=== PATIENT | male | born 1940 | race Caucasian/White ===

== ENCOUNTER 2024-05-24 09:52 | Outpatient (CLI) | payer MEDICARE, BC ==
[2024-05-24 10:21] LABS: BASO % 0.6 % (0.0-2.0); EOS # 0.3 K/mm3 (0.0-0.7); EOS % 5.6 % (0.0-4.0); GRAN # 2.7 K/mm3 (1.4-6.5); GRAN % 50.4 % (42.2-75.2); HEMATOCRIT 44.2 % (42.0-52.0); HEMOGLOBIN 15.1 g/dl (13.5-18.0); LYMPH # 1.7 K/mm3 (1.2-3.4); LYMPH % 31.9 % (20.0-51.0); MEAN CELL VOLUME 88 fl (80.0-100.0); MEAN CORPUSCULAR HEMOGLOBIN 30 pg (27-31); MEAN CORPUSCULAR HGB CONC 34 g/dl (33.0-37.0); MEAN PLATELET VOLUME 12.5 fl (7.4-10.4); MONO # 0.6 K/mm3 (0.1-0.6); MONO % 11.3 % (1.7-9.3); PLATELET COUNT 175 K/mm3 (130-400); RED BLOOD COUNT 5.03 M/mm3 (4.20-5.60); REDCELL DISTRIBUTION WIDTH-CV 14.1 % (11.5-14.5)
[2024-05-24] MEDS ORDERED: OSTEO-BI-FLEX 21 TAB PO (10:23)
[2024-05-24] MEDS ORDERED: CVS SPECTRAVIT1 EA15 PO (10:23)
[2024-05-24] MEDS ORDERED: VITAMINC1000TA (10:24)
[2024-05-24] MEDS ORDERED: PHARMASSURE ZIN50 MG PO (10:24)
[2024-05-24] MEDS ORDERED: PROBIOTIC BLEN1 EACH PO (10:25)
[2024-05-24] MEDS ORDERED: D5W ICA PRN (10:30)
[2024-05-24 10:31] VITALS: BP 116/78; PULSE 60; TEMP 97.2
[2024-05-24] MEDS ORDERED: [UNRECOGNIZED DRUG - OTHER] PO (10:41)
[2024-05-24] MEDS ORDERED: [UNRECOGNIZED DRUG - OTHER] PO (10:41)
[2024-05-24] MEDS ORDERED: ARICEPT 5MG (10:42)
[2024-05-24] MEDS ORDERED: MASON NATURAL2000 IU PO (10:43)
[2024-05-24 12:02] LABS: CALCIUM 9.2 mg/dL (8.4-10.2); CREATININE, serum 1.2 mg/dL (0.72-1.25); POTASSIUM 4.3 mEq/L (3.5-4.5)
--- NOTE | 2024-05-24 12:11 | NUR ---
Pt tolerated initial dose of dalvance without issue. He remained in dept for monitoring until this time. Remains free of complaints, s/s of reaction. Pt education packet about med was given to pt and . IV Dc'd, site wrapped with coban. They exit dept, pt's gait steady with hard soled shoe in place.
== END 2024-05-24 12:13 | disposition home or self-care (01) ==
LOC: EUO 09:52
PROVIDERS: Family Medicine
DX: M86.171 Other acute osteomyelitis, right ankle and foot (principal); L97.513 Non-pressure chronic ulcer of other part of right foot with necrosis of muscle
CPT/HCPCS: J0875; J7060

== ENCOUNTER 2024-06-01 09:49 | Outpatient (RCR) | payer MEDICARE, BC ==
[~2024-06-01] VITALS: Ht 172.7 cm; Wt 92.3 kg
[~2024-06-01 09:49] MED LIST: ARICEPT 5MG; CVS SPECTRAVIT1 EA15 PO; MASON NATURAL2000 IU PO; OSTEO-BI-FLEX 21 TAB PO; PHARMASSURE ZIN50 MG PO; PROBIOTIC BLEN1 EACH PO; VITAMINC1000TA; [UNRECOGNIZED DRUG - OTHER] PO; [UNRECOGNIZED DRUG - OTHER] PO
[2024-06-01] MEDS ORDERED: DALBAVANCIN IV SCH (10:15)
[2024-06-01] MEDS ORDERED: D5W ICA PRN (10:15)
[2024-06-01] MEDS ORDERED: D5W IV SCH (10:15)
[2024-06-01 10:20] VITALS: BP 147/63; PULSE 56; TEMP 97.4
== END 2024-06-01 11:18 | disposition home or self-care (01) ==
LOC: EUO 09:49
DX: M86.171 Other acute osteomyelitis, right ankle and foot (principal); L97.513 Non-pressure chronic ulcer of other part of right foot with necrosis of muscle
CPT/HCPCS: J0875; J7060